=== PATIENT | female | born 1940 | race Caucasian/White ===

== ENCOUNTER 2017-02-21 15:04 | Inpatient (IN) | payer OTHER ==
[~2017-02-21] VITALS: Ht 154.9 cm; Wt 58.5 kg
[~2017-02-21 15:04] MED LIST: A/B OTIC15 ML; ASPIR 8181 MG PO; CARVEDILOL25 M1 PO; FENOFIBRATE MI134 MG PO; LOSARTAN POTASS1 TA6; MAGNESIUM OXID400 MG PO; METFORMIN500 M1 GT; MONTELUKAST SOD10 M1 PO; NOR5 PO; SIMVASTATIN40 M1 PO
[2017-02-21 16:12] LABS: BASOPHIL % 0.6 % (0-2); PLATELET COUNT 319 x10^3mcL (130-400); RED CELL DISTRIBUTION WIDTH 14.2 % (11.5-14.5)
[2017-02-21 16:17] LABS: CALCIUM 9.6 mg/dL (8.5-10.1); CARBON DIOXIDE 26.8 mmol/L (21-32); CHLORIDE SERUM 99 mmol/L (98-107); CREATININE SERUM 1.2 mg/dL (0.6-1.0); GLUCOSE SERUM 129 mg/dL (74-106); POTASSIUM SERUM 4.1 mmol/L (3.5-5.1); SODIUM SERUM 136 mmol/L (136-145)
[2017-02-21 16:25] LABS: ALBUMIN 4.1 g/dL (3.4-5.0); ALKALINE PHOSPHATASE 37 U/L (46-116); ALT/SGPT 30 U/L (14-59); AST/SGOT 29 U/L (15-37); BILIRUBIN TOTAL 0.69 mg/dL (0.20-1.00); CHOLESTEROL 166 mg/dL (<200); TOTAL PROTEIN, SERUM 8.2 g/dL (6.4-8.2)
[2017-02-21 17:02] LABS: microscopic required? NO
[2017-02-21 17:28] LABS: UA SPECIFIC GRAVITY 1.015 (1.005-1.035); urine erythrocyte NEGATIVE (NEGATIVE)
[2017-02-21 18:39] VITALS: BP 189/93
[2017-02-21 18:49] LABS: PHOSPHOROUS 3.2 mg/dL (2.5-4.9)
[2017-02-21 18:51] LABS: AMPHETAMINE QUAL UR NONE DETECTED (NEG <=1000)
[2017-02-21 19:00] LABS: T3 TOTAL 1.09 ng/mL
[2017-02-21 19:01] LABS: FREE T4 1.41 ng/dL (0.76-1.46); FREE THYROXINE INDEX 3.5 ug/dL (1.4-4.5); T4(THYROXINE) 11.8 ug/dL (4.7-13.3)
[2017-02-21 19:16] LABS: CHOLESTEROL/HDL RATIO 4.4; MAGNESIUM 1.8 mg/dL (1.8-2.4)
[2017-02-21 21:03] VITALS: BP 158/81
[2017-02-21 22:55] VITALS: BP 109/57
[2017-02-22 05:57] VITALS: BP 148/74
[2017-02-22 09:46] VITALS: BP 139/67
[2017-02-22 10:18] VITALS: Ht 154.9 cm; Wt 58.5 kg
[2017-02-22 13:26] VITALS: BP 125/61
[2017-02-22 17:23] VITALS: BP 145/75
[2017-02-22 20:57] VITALS: BP 142/71
[2017-02-23 05:15] VITALS: BP 139/61
[2017-02-23 06:10] LABS: BASOPHIL % 0.4 % (0-2); PLATELET COUNT 255 x10^3mcL (130-400); RED CELL DISTRIBUTION WIDTH 14.3 % (11.5-14.5)
[2017-02-23 06:18] LABS: CALCIUM 8.7 mg/dL (8.5-10.1); CARBON DIOXIDE 25.3 mmol/L (21-32); CHLORIDE SERUM 107 mmol/L (98-107); GLUCOSE SERUM 102 mg/dL (74-106); POTASSIUM SERUM 3.6 mmol/L (3.5-5.1); SODIUM SERUM 141 mmol/L (136-145)
[2017-02-23 09:04] VITALS: BP 153/72
[2017-02-23 13:27] VITALS: BP 143/73
[2017-02-23 13:52] VITALS: BP 143/73
== END 2017-02-23 15:00 | disposition home or self-care (01) | DRG 312 ==
LOC: ED 15:04 → DU 17:39
PROVIDERS: Emergency Medicine; Family Medicine; ADMIT Family Medicine
DX: R55 Syncope and collapse (principal); N17.0 Acute kidney failure with tubular necrosis; Z68.24 Body mass index [BMI] 24.0-24.9, adult; Z79.82 Long term (current) use of aspirin
CPT/HCPCS: 80307; 83880; 84439; G0480; J7030; Q0092

== ENCOUNTER 2017-10-14 15:24 | Emergency (ER) | payer OTHER ==
[~2017-10-14 15:24] MED LIST changes: -SIMVASTATIN40 M1 PO; +ZOCOR20 MG PO
[2017-10-14 16:11] LABS: CALCIUM 9.4 mg/dL (8.5-10.1); CARBON DIOXIDE 27.7 mmol/L (21-32); CHLORIDE SERUM 100 mmol/L (98-107); CREATININE SERUM 1.1 mg/dL (0.6-1.0); GLUCOSE SERUM 113 mg/dL (74-106); POTASSIUM SERUM 3.6 mmol/L (3.5-5.1); SODIUM SERUM 137 mmol/L (136-145)
[2017-10-14 16:16] LABS: ALBUMIN 3.6 g/dL (3.4-5.0); ALKALINE PHOSPHATASE 46 U/L (46-116); ALT/SGPT 25 U/L (14-59); AST/SGOT 17 U/L (15-37); BILIRUBIN TOTAL 0.4 mg/dL (0.20-1.00); TOTAL PROTEIN, SERUM 7.9 g/dL (6.4-8.2)
[2017-10-14 16:19] LABS: BASOPHIL % 0.5 % (0-2); PLATELET COUNT 270 x10^3mcL (130-400); RED CELL DISTRIBUTION WIDTH 14.1 % (11.5-14.5)
[2017-10-14 17:35] VITALS: BP 140/74
== END 2017-10-14 17:35 | disposition home or self-care (01) ==
LOC: ED 15:24
PROVIDERS: Emergency Medicine
DX: I16.0 Hypertensive urgency (principal); I10 Essential (primary) hypertension; E78.00 Pure hypercholesterolemia, unspecified; Z88.5 Allergy status to narcotic agent; Z91.040 Latex allergy status
CPT/HCPCS: 83880; J3490; Q0092

== ENCOUNTER 2017-10-17 10:25 | Observation (INO) | payer OTHER ==
[~2017-10-17] VITALS: Ht 154.9 cm; Wt 59.4 kg
[2017-10-17] VITALS (7 sets, daily range): BP systolic 127–190; BP diastolic 69–93
[2017-10-17 11:00] LABS: BASOPHIL % 0.4 % (0-2); PLATELET COUNT 280 x10^3mcL (130-400); RED CELL DISTRIBUTION WIDTH 13.4 % (11.5-14.5)
[2017-10-17] MEDS ORDERED: NOR5 PO (11:02)
[2017-10-17 11:21] LABS: CALCIUM 9.5 mg/dL (8.5-10.1); CHLORIDE SERUM 97 mmol/L (98-107); CREATININE SERUM 1.4 mg/dL (0.6-1.0); GLUCOSE SERUM 181 mg/dL (74-106); POTASSIUM SERUM 3.5 mmol/L (3.5-5.1); SODIUM SERUM 133 mmol/L (136-145)
[2017-10-17 11:26] LABS: ALBUMIN 3.8 g/dL (3.4-5.0); ALKALINE PHOSPHATASE 46 U/L (46-116); ALT/SGPT 29 U/L (14-59); AST/SGOT 20 U/L (15-37); BILIRUBIN TOTAL 0.5 mg/dL (0.20-1.00); TOTAL PROTEIN, SERUM 8.2 g/dL (6.4-8.2)
[2017-10-17] MEDS ORDERED: FENOFIBRATE54 M1 PO (12:08)
[2017-10-17] MEDS ORDERED: TIMOPTIC OCUMET10 ML OU (13:04)
[2017-10-17 14:23] LABS: CHOLESTEROL/HDL RATIO 4.6; MAGNESIUM 1.9 mg/dL (1.8-2.4); PHOSPHOROUS 3.4 mg/dL (2.5-4.9)
[2017-10-17 14:28] LABS: FREE T4 1.32 ng/dL (0.76-1.46); T4(THYROXINE) 12.2 ug/dL (4.7-13.3)
[2017-10-17 14:29] LABS: T3 TOTAL 1.12 ng/mL
[2017-10-17 23:36] LABS: UA SPECIFIC GRAVITY <=1.005 (1.005-1.035); microscopic required? YES; urine erythrocyte NEGATIVE (NEGATIVE)
[2017-10-17 23:46] LABS: AMPHETAMINE QUAL UR NONE DETECTED (NEG <=1000)
[2017-10-18 04:46] VITALS: BP 159/84
[2017-10-18 06:32] LABS: CALCIUM 8.6 mg/dL (8.5-10.1); CARBON DIOXIDE 29.7 mmol/L (21-32); CHLORIDE SERUM 103 mmol/L (98-107); CREATININE SERUM 1.1 mg/dL (0.6-1.0); GLUCOSE SERUM 114 mg/dL (74-106); POTASSIUM SERUM 3.7 mmol/L (3.5-5.1); SODIUM SERUM 140 mmol/L (136-145)
[2017-10-18 06:46] LABS: BASOPHIL % 0.4 % (0-2); PLATELET COUNT 239 x10^3mcL (130-400); RED CELL DISTRIBUTION WIDTH 14.1 % (11.5-14.5)
[2017-10-18 08:15] VITALS: BP 142/74
[2017-10-18] MEDS ORDERED: LEVAQUIN250 M1 PO (09:51)
[2017-10-18] MEDS ORDERED: BD LACTINEX1.4 MG PO (09:52)
[2017-10-18] MEDS ORDERED: ISO10 PO (09:53)
[2017-10-18 10:48] VITALS: BP 125/57
[2017-10-18 12:07] VITALS: Ht 154.9 cm; Wt 59.4 kg
[2017-10-18 15:14] VITALS: BP 139/65
[2017-10-18 16:06] VITALS: BP 139/65
== END 2017-10-18 17:00 | disposition home or self-care (01) | DRG 205 ==
LOC: ED 10:25 → DU 10:54 → EDBEDREQ 10:55 → DU 12:08
PROVIDERS: ADMIT Family Medicine
DX: M94.0 Chondrocostal junction syndrome [Tietze] (principal); N17.0 Acute kidney failure with tubular necrosis; E87.1 Hypo-osmolality and hyponatremia; N39.0 Urinary tract infection, site not specified; I16.1 Hypertensive emergency; I10 Essential (primary) hypertension; I25.2 Old myocardial infarction; E78.5 Hyperlipidemia, unspecified; Z86.73 Personal history of transient ischemic attack (TIA), and cerebral infarction without residual deficits; Z95.1 Presence of aortocoronary bypass graft; Z98.62 Peripheral vascular angioplasty status; Z79.84 Long term (current) use of oral hypoglycemic drugs; Z79.82 Long term (current) use of aspirin; Z68.24 Body mass index [BMI] 24.0-24.9, adult
CPT/HCPCS: 83880; 84439; G0378; J0696; J7030

== ENCOUNTER 2017-10-25 17:11 | Emergency (ER) | payer OTHER ==
[~2017-10-25 17:11] MED LIST changes: +BD LACTINEX1.4 MG PO; +FENOFIBRATE54 M1 PO; +ISO10 PO; +LEVAQUIN250 M1 PO; +TIMOPTIC OCUMET10 ML OU
[2017-10-25 17:14] VITALS: BP 216/87
== END 2017-10-25 18:14 | disposition home or self-care (01) ==
LOC: ED 17:11
DX: I10 Essential (primary) hypertension (principal); E78.00 Pure hypercholesterolemia, unspecified; Z91.010 Allergy to peanuts; Z88.5 Allergy status to narcotic agent

== ENCOUNTER 2017-10-28 01:45 | Emergency (ER) | payer OTHER ==
[2017-10-28 04:37] VITALS: BP 131/68
== END 2017-10-28 04:59 | disposition home or self-care (01) ==
LOC: ED 01:45
DX: I10 Essential (primary) hypertension (principal); F41.0 Panic disorder [episodic paroxysmal anxiety]; E78.00 Pure hypercholesterolemia, unspecified; Z91.018 Allergy to other foods; Z88.5 Allergy status to narcotic agent; Z91.040 Latex allergy status
CPT/HCPCS: Q0162